=== PATIENT | female | born 1995 ===

== ENCOUNTER 2017-02-06 07:15 | Emergency (ER) | payer BC ==
[2017-02-06 07:37] VITALS: BP 96/70
--- NOTE | 2017-02-06 08:19 | UC ---
Throat Pain/Nasal Jered HPI - HPI Summary HPI Summary: [address], FATIGUE, PND AND EAR PAIN. GLANDS FEEL SWOLLEN. WENT TO [facility] A WEEK OR SO AGO AND WAS TOLD IT WAS VIRAL. PT REPORTS SX ARE WORSENING. ALSO IS EXPOSED TO STREP AT WORK. SOMETIMES GETS SIMILAR SYMPTOMS WHEN SHE CONSUMES GLUTEN (CELIAC). HAD SLIGHTLY ELEVATED TEMP 99.9. - History of Current Complaint Chief Complaint: UCRespiratory Stated Complaint: SORE THROAT Time Seen by Provider: 02/06/17 07:25 Hx Obtained From: Patient Hx Last Menstrual Period: IUD IN PLACE SINCE 02/02/2017. Onset/Duration: Gradual Onset, Lasting Weeks, Still Present Severity: Moderate Pain Intensity: 5 Pain Scale Used: 0-10 Numeric Cough: None - Allergies/Home Medications Allergies/Adverse Reactions: Allergies Allergy/AdvReac Type Severity Reaction Status Date / Time No Known Allergies Allergy Verified 02/06/17 07:23 Home Medications: Home Medications Iud 1 applic IU DAILY 02/06/17 [History Confirmed 02/06/17] PMH/Surg Hx/FS Hx/Imm Hx Other GI/ History: CELIAC - Surgical History Surgical History: Yes Surgery Procedure, Year, and Place: dental - wisdom teeth - Family History Known Family History: Negative: Hypertension - Social History Alcohol Use: Occasionally Substance Use Type: None Smoking Status (MU): Never Smoked Tobacco Review of Systems Constitutional: Fever, Fatigue ENT: Sore Throat, Ear Ache Respiratory: Negative Cardiovascular: Negative All Other Systems Reviewed And Are Negative: Yes Physical Exam Triage Information Reviewed: Yes Appearance: Well-Appearing, No Pain Distress, Well-Nourished Vital Signs: Initial Vital Signs Temp 98.2 F 02/06/17 07:27 Pulse 82 02/06/17 07:27 Resp 16 02/06/17 07:27 BP 96/70 02/06/17 07:27 Pulse Ox 100 02/06/17 07:27 Vital Signs Reviewed: Yes Eyes: Positive: Conjunctiva Clear ENT: Positive: Hearing grossly normal, Pharyngeal erythema, TMs normal Neck: Positive: Supple, Nontender, No Lymphadenopathy Respiratory Exam: Normal Cardiovascular Exam: Normal Abdomen Description: Positive: Soft Musculoskeletal: Positive: No Edema Neurological: Positive: Alert Psychological: Positive: Age Appropriate Behavior Skin: Negative: rashes Diagnostics - Laboratory Diagnostic Studies Completed/Ordered: RAPID STREP NEG Throat Pain/Nasal Course/Dx - Differential Dx/Diagnosis Provider Diagnoses: ACUTE PHARYNGITIS Discharge - Discharge Plan Condition: Stable Disposition: HOME Prescriptions: Amoxicillin CAP* [Amoxicillin 500 MG CAP*] 1,000 mg PO Q12H #40 cap Patient Education Materials: Pharyngitis (ED) Referrals: Non Staff,Doctor [Primary Care Provider] - Additional Instructions: RAPID STREP NEGATIVE. GIVEN LENGTH OF TIME OF ILLNESS WILL COVER WITH ANTIBIOTICS. TAKE FOR THE FULL 10 DAYS. STAY WELL HYDRATED. FOLLOW-UP WITH PCP DR. TIAN OR RETURN HERE IF NEEDED.
== END 2017-02-06 08:30 | disposition home or self-care (01) ==
LOC: UCEAST 07:15
DX: J02.9 Acute pharyngitis, unspecified (principal)
CPT/HCPCS: 87651; 99212; G0463

== ENCOUNTER 2017-09-19 07:05 | Emergency (ER) | payer BC ==
[2017-09-19 07:16] VITALS: BP 127/94
--- NOTE | 2017-09-19 07:44 | UC ---
Malka Solis Julia, scribed for Calderon Fabian MD on 09/19/17 at 0732 . Neck Pain HPI - HPI Summary HPI Summary: This patient is a 22 year old F presenting to [facility] with a chief complaint of throat pain worse on her L side since July due to tonsil stones described as garcia and blackish with mucous. Patient states she got some out yesterday but her throat is still inflamed. Patient reports rhinorrhea and body aches. Patient denies fever currently, but was febrile last week. The patient rates the pain 5/10 in severity. Patient usually finds relief of symptoms with Amoxyicillin. - History of Current Complaint Chief Complaint: UCRespiratory Stated Complaint: THROAT PAIN Time Seen by Provider: 09/19/17 07:12 Hx Obtained From: Patient Hx Last Menstrual Period: 08/24/17 Onset/Duration Of Injury/Symptoms: Weeks Onset/Duration: Lasting Weeks, Still Present Pain Intensity: 5 Pain Scale Used: 0-10 Numeric Location: Diffuse - throat pain worse on L Associated Signs & Symptoms: Positive: Fever Related History: Similar Episode/Dx As: - "tonsil stones" - Allergies/Home Medications Allergies/Adverse Reactions: Allergies Allergy/AdvReac Type Severity Reaction Status Date / Time Gluten Meal Allergy Diarrhea Verified 09/19/17 07:16 PMH/Surg Hx/FS Hx/Imm Hx GI/ History: Other - Celiac's disease Other GI/ History: celiac disease - Surgical History Surgical History: Yes Surgery Procedure, Year, and Place: dental - wisdom teeth - Family History Known Family History: Positive: Other - Celiacs Negative: Hypertension - Social History Occupation: Employed Full-time Alcohol Use: Occasionally Substance Use Type: None Smoking Status (MU): Never Smoked Tobacco - Immunization History Most Recent Influenza Vaccination: none Review Of Systems Constitutional: Negative: Fever ENT: Positive: Sore Throat, Other - "tonsil stones" All Other Systems Reviewed And Are Negative: Yes Physical Exam Triage Information Reviewed: Yes Appearance: Well-Appearing, No Pain Distress Vital Signs: Initial Vital Signs Temp 98.4 F 09/19/17 07:12 Pulse 70 09/19/17 07:12 Resp 14 09/19/17 07:12 BP 127/94 09/19/17 07:12 Pulse Ox 100 09/19/17 07:12 Vital Signs Reviewed: Yes Eyes: Positive: Conjunctiva Clear ENT: Positive: Hearing grossly normal, Pharyngeal erythema, TMs normal, Tonsillar swelling - mild left side, Uvula midline. Negative: Tonsillar exudate , Trismus, Muffled voice, Hoarse voice Neck: Positive: Supple, Nontender Respiratory: Positive: Chest non-tender, Lungs clear, Normal breath sounds, No respiratory distress Cardiovascular: Positive: RRR, No Murmur Musculoskeletal: Positive: Strength Intact Neurological: Positive: Alert, Muscle Tone Normal Psychological: Positive: Normal Response To Family Skin Exam: Normal Neck Pain Course/Dx - Course Course Of Treatment: Patient presents with sore throat, worse on her left, due to history of tonsil stones since July 2017. Patient denies current fever, but reports fever last week. She states that Amoxyicillin has relieved these symptoms in the past. - Differential Dx/Diagnosis Provider Diagnoses: Tonisillitis Discharge - Discharge Plan Condition: Good Disposition: HOME Prescriptions: Amoxicillin PO (*) [Amoxicillin 500 MG CAP*] 500 mg PO TID #30 cap Patient Education Materials: Tonsillitis (ED) Forms: *Work Release Referrals: Gema Licea MD [Primary Care Provider] - 2 Days The documentation as recorded by the Malka sanders Julia accurately reflects the service I personally performed and the decisions made by , Calderon Fabian MD.
== END 2017-09-19 07:42 | disposition home or self-care (01) ==
LOC: UCEAST 07:05
DX: J03.90 Acute tonsillitis, unspecified (principal); K90.0 Celiac disease
CPT/HCPCS: 99212; G0463

== ENCOUNTER 2017-12-07 06:52 | Day surgery (SDC) | payer BC ==
[~2017-12-07 06:52] MED LIST: Buffered Lidocaine 0.9% SYRIN* 5 ML/SYR SYRINGE INTRADERM ONE; Dexamethasone IV* 4 MG/ML 1 ML (4 MG) IV SLOW PU ONE; Famotidine IV* 10 MG/ML 2 ML (20 mg) IV ONE
[2017-12-07] MEDS ORDERED: Buffered Lidocaine 0.9% SYRIN* 5 ML/SYR SYRINGE ONE (07:00)
[2017-12-07] MEDS ORDERED: Dexamethasone IV* 4 MG/ML 1 ML (4 MG) ONE (07:00)
[2017-12-07] MEDS ORDERED: Famotidine TAB* 20 MG ONE (07:01)
[2017-12-07] MEDS ORDERED: Dexmedetomidine* 200 MCG/2 ML 2 ML VIAL ONE (07:13)
[2017-12-07] MEDS ORDERED: fentaNYL* 50 MCG/ML 2 ML VIAL (100 MCG VIAL) ONE (08:02)
[2017-12-07] MEDS ORDERED: Midazolam* 1 MG/ML 2 ML VIAL (2 MG) ONE (08:03)
[2017-12-07] MEDS ORDERED: DiMENhydriNATE IV* 50 MG/ML VIAL IV PUSH PRN (09:14)
[2017-12-07] MEDS ORDERED: fentaNYL* 50 MCG/ML 2 ML VIAL (100 MCG VIAL) IV PRN (09:14)
[2017-12-07] MEDS ORDERED: Naloxone* 0.4 MG/ML 1 ML VIAL IV PRN (09:14)
[2017-12-07] MEDS ORDERED: HYDROcodone/ACET. 7.5/325 LIQ* 15 ML UDC ONE (09:35)
--- NOTE | 2017-12-07 09:57 | OP ---
DATE OF OPERATION: 12/07/17 - [facility] DATE OF : [birth year] SURGEON: Maynor De La Rosa MD LIBERAL ARTS DEAN: None. ANESTHESIA: General. PRE-OP DIAGNOSIS: Chronic tonsillitis. POST-OP DIAGNOSIS: Chronic tonsillitis. OPERATIVE PROCEDURE: Tonsillectomy. ESTIMATED BLOOD LOSS: Negligible. SPECIMENS: Right and left tonsils to pathology. INDICATION: This is a 22-year-old woman who has had problems with chronic tonsillitis for the last few years. DESCRIPTION OF PROCEDURE: On 12/07/17, she presents to the operating room for elective tonsillectomy. General anesthesia was induced. The patient was orally intubated. The table was turned. The patient was draped and the head wrap was applied. A time-out was performed. A McIvor mouth gag was used to facilitate exposure of the oropharynx and was suspended from the Villagran stand. The right tonsil was addressed first. It was grasped with a straight Allis forceps, retracted medially and dissected free of its fossa with the coblation device at a setting of 7 and 3 with no bleeding. The left tonsil was removed in an identical fashion, again utilizing the coblation device with minimal bleeding. Once the tonsils were removed, the superior and inferior pole regions were each prophylactically cauterized with the bipolar setting on 5. The mouth gag was then let down for a minute. It was opened and there was no evidence of active bleeding. An orogastric tube was passed into the stomach. The stomach contents were evacuated. The patient was then returned to the care of the anesthesiologist, extubated and delivered to the PACU in stable condition. [id number]/[facility] #: [id number] MTDD
[2017-12-07 10:22] VITALS: BP 104/79
== END 2017-12-07 10:35 | disposition home or self-care (01) ==
LOC: OR 06:52
PROVIDERS: ATTEND Otolaryngology
DX: J35.01 Chronic tonsillitis (principal); R07.0 Pain in throat
CPT/HCPCS: 81025; 88304; A9270-GY; J1100; J2250; J3010